=== PATIENT | female | born 1990 | race African-American/Black ===

== ENCOUNTER 2016-12-03 21:00 | Emergency (ER) | payer OTHER ==
[2016-12-03 21:07] VITALS: BP 143/80; PULSE 69; TEMP 97.8; BMI 22.6
[2016-12-03] MEDS ORDERED: morphine CARPU-JECT 4 MG/1 ML DISP.SYRIN IVPUSH ONE (21:30)
[2016-12-03] MEDS ORDERED: ONDANSETRON 4 MG/2 ML VIAL IVPUSH ONE (21:30)
[2016-12-03] MEDS ORDERED: SODIUM CHLORIDE 1,000 ML IV STA (21:30)
[2016-12-03] MEDS ORDERED: morphine CARPU-JECT 4 MG/1 ML DISP.SYRIN ONE (21:36)
[2016-12-03] MEDS ORDERED: ONDANSETRON 4 MG/2 ML VIAL ONE (21:36)
--- NOTE | 2016-12-03 21:52 | PDOC ---
History of Present Illness - General Chief Complaint: Pain, Acute Stated Complaint: ABD PAIN Time Seen by Provider: 12/03/16 21:19 History Source: Patient, Family (Mother) Exam Limitations: No Limitations - History of Present Illness Travel History: No Initial Comments: 12/03/16 21:48 26yo Female patient presents to ED c/o abd pain since 230 pm w/ n/v x 7 per patient. Patient states symptoms gradually got worse beginning Friday. Patient reports alcohol use on Friday. LNMP: Current. Denies any other complaints at this time. Timing/Duration: reports: getting worse Quality: reports: cramping Abdominal Pain Onset Location: reports: generalized abdomen Pain Radiation: denies: no radiation, RUQ, LUQ, RLQ, LLQ, epigastric, periumbilical, flank, groin, scapula, shoulder, chest, back, other Activities at Onset: reports: no specific activity Treatment Prior to Arrive: worse with: analgesics, antacids, cold pack, heat, laxative, enema, other Aggravating Factors: worse with: None, Defecation, Eating, Emotional upset, Exertion, [place], Movement, Voiding, Change in position Alleviating Factors: worse with: None, Belching, Shallow Breathing, Defecation, Eating, Holding Breath, Passing Gas, Change in Position, Rest, Voiding, Vomiting Past History - Travel Traveled outside of the country in the last 30 days: No Close contact w/someone who was outside of country & ill: No - Past Medical History Allergies/Adverse Reactions: Allergies Allergy/AdvReac Type Severity Reaction Status Date / Time No Known Allergies Allergy Verified 12/03/16 21:02 Home Medications: Ambulatory Orders Famotidine [Pepcid] 20 mg PO BID #14 tablet 12/04/16 Ondansetron [Zofran Odt -] 4 mg SL Q6H PRN #20 od.tablet 12/04/16 Asthma: No Cancer: No Cardiac Disorders: No Diabetes: No HTN: No Seizures: No Thyroid Disease: No - Immunization History Immunization Up to Date: Yes - Psycho/Social/Smoking Cessation Hx Suicidal Ideation: No Smoking History: Never smoked Have you smoked in the past 12 months: No Number of Cigarettes Smoked Daily: 2 Information on smoking cessation initiated: No Hx Alcohol Use: No Drug/Substance Use Hx: Yes (Marijuana) Hx Substance Use Treatment: No Abd/GI Specific PMHX - Complaint Specific PMHX Colitis: No Diverticulitis: No Gall Bladder Disease: No GERD: No Hepatitis: No Irritable Bowel Synd (IBS): No Pancreatitis: No GI Ulcer Disease: No Review of Systems - Review of Systems Able to Perform ROS?: Yes Is the patient limited Divehi proficient: No Constitutional: No: Chills, Fever Respiratory: No: Cough, Shortness of Breath, Stridor, Wheezing, Hemoptysis Cardiac (ROS): No: Chest Pain, Palpitations, Chest Tightness ABD/GI: Yes: Nausea, Vomiting, Other (Abdominal Pain). No: Poor Appetite, Poor Fluid Intake, Rectal Bleeding : No: Dysuria, Flank Pain, Hematuria Musculoskeletal: No: Back Pain Integumentary: No: Bruising, Erythema, Flushing, Rash, Sweating Neurological: No: Headache, Dizziness All Other Systems: Reviewed and Negative *Physical Exam - Vital Signs Last Vital Signs Temp Pulse Resp BP Pulse Ox 97.8 F 69 18 143/80 100 12/03/16 21:04 12/03/16 21:04 12/03/16 21:04 12/03/16 21:04 12/03/16 21:04 - Physical Exam General Appearance: Yes: Nourished, Appropriately Dressed, Apparent Distress, Moderate Distress. No: Mild Distress, Severe Distress Neck: positive: Trachea midline, Supple. negative: Lymphadenopathy (R), Lymphadenopathy (L) Respiratory/Chest: positive: Lungs Clear, Normal Breath Sounds. negative: Respiratory Distress, Accessory Muscle Use, Labored Respiration, Rapid RR Cardiovascular: positive: Regular Rhythm, Regular Rate Gastrointestinal/Abdominal: positive: Normal Bowel Sounds, Soft, Tenderness ( GENERALIZED ABD TENDERNESS WITH MILD TOUCH). negative: Distended, Guarding, Rebound Musculoskeletal: positive: Normal Inspection. negative: CVA Tenderness Extremity: positive: Normal Capillary Refill, Normal Inspection, Normal Range of Motion. negative: Pedal Edema, Swelling, Calf Tenderness, Erythema, Inflammation Integumentary: positive: Normal Color, Dry, Warm Neurologic: positive: ux developer II-XII NML intact, Fully Oriented, Alert, Normal Mood/ Affect, Normal Response, Motor Strength 5/5 ED Treatment Course - LABORATORY CBC & Chemistry Diagram: 12/03/16 22:00 12/03/16 22:00 Progress Note - Progress Note Progress Note: Patient states her symptoms have improved. Patient sitting up in bed talking with Mother. Denies any pain. No acute distress. Asking to be d/c'd to home. *DC/Admit/Observation/Transfer Diagnosis at time of Disposition: Gastritis Qualifiers: Gastritis type: alcoholic Chronicity: acute Gastritis bleeding: without bleeding Qualified Code(s): K29.20 - Alcoholic gastritis without bleeding - Discharge Dispostion Disposition: HOME Condition at time of disposition: Improved Admit: No - Prescriptions Prescriptions: Famotidine [Pepcid] 20 mg PO BID #14 tablet Ondansetron [Zofran Odt -] 4 mg SL Q6H PRN #20 od.tablet PRN Reason: Nausea - Patient Instructions Printed Discharge Instructions: DI for Gastritis, DI for Alcoholic Gastritis Additional Instructions: FOLLOW UP WITH YOUR PRIMARY CARE PROVIDER NEEDED. TAKE MEDICATIONS PRESCRIBED. RETURN IF SYMPTOMS WORSEN OR ANY CONCERNS FOR FURTHER EVALUATION. Print Language: JAPANESE
[2016-12-03 22:08] LABS: BASOPHIL 0.5 % (0-2.0); EOSINOPHIL 0.1 % (0-4.5); MCH 25.3 pg (25.7-33.7); MCHC 31.9 g/dl (32.0-36.0); MEAN CELL VOLUME 79.3 fl (80-96); MEAN PLT VOLUME 8.1 fl (7.5-11.1); NEUTROPHILS 82.9 % (42.8-82.8); PLATELET COUNT 218 K/MM3 (134-434); RDW 14.5 % (11.6-15.6); WHITE BLOOD COUNT 11.5 K/mm3 (4.0-10.0)
[2016-12-03 22:55] LABS: ALBUMIN 4.1 g/dl (3.4-5.0); AMYLASE 147 U/L (25-115); ANION GAP 11 (8-16); CALCIUM 9.6 mg/dL (8.5-10.1); CO2 25 mmol/L (21-32); COCKROFT - GAULT 94.1205; CREATININE 0.9 mg/dL (0.55-1.02); GLUCOSE,RANDOM 122 mg/dL (74-106); SGOT/AST 16 U/L (15-37); SGPT/ALT 20 U/L (12-78)
[2016-12-03 22:56] LABS: ALK PHOS 78 U/L (45-117); BILIRUBIN,TOTAL 0.5 mg/dL (0.2-1.0); TOT PROT 7.5 g/dl (6.4-8.2)
[2016-12-03 23:55] LABS: URINE APPEARANCE CLEAR; URINE BILIRUBIN NEGATIVE (NEGATIVE); URINE COLOR LTYELLOW; URINE GLUCOSE (UA) NEGATIVE (NEGATIVE); URINE KETONE 1+ (NEGATIVE); URINE LEUK ESTERASE NEGATIVE (NEGATIVE); URINE NITRITE NEGATIVE (NEGATIVE); URINE PROTEIN NEGATIVE (NEGATIVE); URINE UROBILINOGEN NEGATIVE E.U./dl (0.2-1.0)
[2016-12-04] LABS: URINE BLOOD 3+ (NEGATIVE)
[2016-12-04 00:02] LABS: URINE BACTERIA FEW /hpf (NONE SEEN); URINE MUCUS FEW; URINE RBC 14 /hpf (0-3); URINE WBC 2 /hpf (3-5)
== END 2016-12-04 00:38 | disposition home or self-care (01) ==
LOC: JER 21:00
PROC: 3E033NZ Introduction of Analgesics, Hypnotics, Sedatives into Peripheral Vein, Percutaneous Approach (ICD-10-PCS; principal; 2016-12-03)
PROC: 3E033GC Introduction of Other Therapeutic Substance into Peripheral Vein, Percutaneous Approach (ICD-10-PCS; 2016-12-03)
DX: K29.20 Alcoholic gastritis without bleeding (principal)
CPT/HCPCS: 36415; 80053; 81003; 81015; 82150; 83690; 84703; 85025; 96374; 96375; 99282-25

== ENCOUNTER 2018-07-24 10:55 | Emergency (ER) | payer OTHER ==
[2018-07-24 11:04] VITALS: BMI 23.1
[2018-07-24] MEDS ORDERED: SODIUM CHLORIDE 1,000 ML IV SCH (11:15)
--- NOTE | 2018-07-24 11:21 | PDOC ---
History of Present Illness - General Chief Complaint: Nausea/Vomiting Stated Complaint: VOMIT Time Seen by Provider: 07/24/18 11:11 History Source: Patient Exam Limitations: No Limitations - History of Present Illness Initial Comments: 07/24/18 11:40 28 year old with no past medical history who presents with multiple episodes of NBNB vomiting too many to count that started this am at 0700 after drinking 4 cups of vodka last night at 2100. The patient reports she does not drink alcohol regularly but only occasionally, and this is about the same amount of alcohol that she drinks. She also complains of nonbloody diarrhea that started the same time as the vomiting this AM. She denies abdominal pain, fever, dysuria , hematuria. She denies any chance of . Patient denies any recreational drug use, including marijuana. Past History - Past Medical History Allergies/Adverse Reactions: Allergies Allergy/AdvReac Type Severity Reaction Status Date / Time No Known Allergies Allergy Verified 07/24/18 11:04 Home Medications: Ambulatory Orders Ondansetron [Zofran -] 4 mg PO BID #7 tablet 07/24/18 Ondansetron [Zofran -] 4 mg PO TID #21 tablet 07/24/18 Asthma: No Cancer: No Cardiac Disorders: No Diabetes: No HTN: No Seizures: No Thyroid Disease: No - Immunization History Immunization Up to Date: Yes - Suicide/Smoking/Psychosocial Hx Smoking History: Never smoked Have you smoked in the past 12 months: No Number of Cigarettes Smoked Daily: 2 Hx Alcohol Use: No Drug/Substance Use Hx: Yes (Marijuana) Hx Substance Use Treatment: No Review of Systems - Review of Systems Able to Perform ROS?: Yes Is the patient limited Vietnamese proficient: No Constitutional: No: Chills, Diaphoresis, Fever Respiratory: No: Cough, Orthopnea, Shortness of Breath Cardiac (ROS): No: Chest Pain, Palpitations, Syncope ABD/GI: No: Constipated, Diarrhea, Nausea, Vomiting : No: Burning, Dysuria, Incontinence Neurological: No: Headache, Numbness, Tingling *Physical Exam - Vital Signs Last Vital Signs Temp Pulse Resp BP Pulse Ox 64 20 128/77 98 07/24/18 11:02 07/24/18 11:02 07/24/18 11:02 07/24/18 11:02 - Physical Exam Comments: 07/24/18 11:57 GENERAL: Awake, alert, and fully oriented, in no acute distress HEAD: No signs of trauma, normocephalic, atraumatic EYES: PERRLA, EOMI, sclera anicteric, conjunctiva clear ENT: oropharynx clear without exudates. Moist mucosa NECK: Normal ROM, supple LUNGS: No distress, speaks full sentences, clear to auscultation bilaterally HEART: Regular rate and rhythm, normal S1 and S2, no murmurs, rubs or gallops, peripheral pulses normal and equal bilaterally. ABDOMEN: Soft, nontender, normoactive bowel sounds. No guarding, no rebound. No masses EXTREMITIES : Normal inspection, Normal range of motion, no edema. No clubbing or cyanosis. NEUROLOGICAL: Cranial nerves II through XII grossly intact. Normal speech, no focal sensorimotor deficits SKIN: Warm, Dry, normal turgor, no rashes or lesions noted Moderate Sedation - Procedure Monitoring Vital Signs: Procedure Monitoring Vital Signs Temperature Pulse Rate 64 07/24/18 11:02 Respiratory Rate 20 07/24/18 11:02 Blood Pressure 128/77 07/24/18 11:02 O2 Sat by Pulse Oximetry (%) 98 07/24/18 11:02 Medical Decision Making - Medical Decision Making 07/24/18 11:53 28 year old with no past medical history who presents with multiple episodes of NBNB vomiting too many to count that started this am at 0700 after drinking 4 cups of vodka last night at 2100. The patient reports she does not drink alcohol regularly but only occasionally, and this is about the same amount of alcohol that she drinks. She also complains of nonbloody diarrhea that started the same time as the vomiting this AM. She denies abdominal pain, fever, dysuria , hematuria. She denies any chance of . ED course: Symptoms consistent with veisalgia vs uti vs gastroenteritis vs Will treat symptoms with reglan and fluid resuscitation. Urinalysis, Upreg ordered. 07/24/18 14:29 Patient feels nausea improved. Drank gatorade without complications or emesis. Cracker and water given for PO trial. If able PO trial successful will dc with home zofran. 07/24/18 15:05 Patient reports feeling improved, tolerated PO. Wants to eat. UA, Upreg pending. Patient ready for discharge. Will call patient with results and send any medications as necessary. Patient stable for discharge. Informed of all lab and imaging results. Given follow up instructions and strict return precautions. Patient expressed understanding and agree to plan. *DC/Admit/Observation/Transfer Diagnosis at time of Disposition: Vomiting - Discharge Dispostion Disposition: HOME Condition at time of disposition: Stable Decision to Admit order: No - Prescriptions Prescriptions: Ondansetron [Zofran -] 4 mg PO BID #7 tablet Ondansetron [Zofran -] 4 mg PO TID #21 tablet - Referrals - Patient Instructions Printed Discharge Instructions: DI for Vomiting -- Adult Additional Instructions: You were seen in the ED for complaints of vomiting. In the ED you were evaluated with labwork and showed improvement of symptoms with fluids and anti-nausea medications. You are advised to follow up with your Primary Care Physician within 1 week. You were given a prescription for Zofran for nausea symptoms. Please take medication as indicated. For the next 12 hours please eat light or clear fluids, including soups, gatorade and broths. Advance your diet to bland foods as tolerated then to a regular diet. Return to the ED immediately if you experience worsening nausea and vomiting, vomiting blood, abdominal pain, blood in urine or stool, fevers, chest pain or shortness of breath. - Post Discharge Activity Forms/Work/School Notes: Back to Work
[2018-07-24] MEDS ORDERED: ONDANSETRON 4 MG/2 ML VIAL IVPUSH ONE (11:40)
[2018-07-24] MEDS ORDERED: METOCLOPRAMIDE HCL INJECTION 10 MG/2 ML VIAL IVPUSH ONE (11:54)
[2018-07-24] MEDS ORDERED: METOCLOPRAMIDE HCL INJECTION 10 MG/2 ML VIAL ONE (12:20)
[2018-07-24] MEDS ORDERED: ONDANSETRON 4 MG/2 ML VIAL ONE (12:20)
--- NOTE | 2018-07-24 12:47 | PDOC ---
Attending Attestation - HPI HPI: 07/24/18 13:47 The patient is a 28 year old female, with no significant past medical history, who presents to the emergency department with multiple episodes of emesis since 7am after drinking 4 cups of vodka last night around 9PM. She also reports an episode of diarrhea. The patient denies chest pain, shortness of breath, headache and dizziness. The patient denies fever, chills, and constipation. The patient denies dysuria, frequency, urgency and hematuria. Allergies: NKDA Past surgical history: none reported Social Hx: Denies recreational drug use, reports occasional ETOH - Physicial Exam PE: 07/24/18 13:47 Vitals: Triage vital signs reviewed General Appearance: No acute distress, well nourished, well developed Head: Atraumatic Eyes: Pupils equal reactive round, extraocular movement intact Neck: Supple; No nuchal rigidity Chest Wall: Nontender Cardiac: Regular rate and rhythm, no murmurs, no rubs, no gallops Lungs: Clear to auscultation bilateral, good air movement bilaterally Abdomen: Soft, nondistended, normal bowel sounds, nontender to palpation Extremities: Full range of motion to all extremities, no cyanosis, clubbing, or edema Skin: Warm and dry, no rashes or lesions, no rash, no petechiae Neuro: AOX3; Cranial Nerves 2-12 grossly intact, Strength intact to all extremities, Sensation intact to all extremities, gait normal Psych: Normal mood, normal affect - Medical Decision Making 07/24/18 13:48 Documentation prepared by Elinor Hernandez, acting as medical billing and coding instructor for Eulogio Valerio MD <Elinor Hernandez - Last Filed: 07/24/18 13:47> - Resident Resident Name: Cheyanne Kumar - ED Attending Attestation I have performed the following: I have examined & evaluated the patient, The case was reviewed & discussed with the resident, I agree w/resident's findings & plan, Exceptions are as noted - Medical Decision Making 28 years old no significant past medical history presents to the ED with several day history of nausea vomiting and diarrhea. History examination consistent with viral GI illness. There is no abdominal tenderness palpation on examination. Reevaluation 3. Status post IV fluids and antiemetics patient feels much better now tolerating fluids by mouth. We'll discharge home which short course of Zofran and very strict return instructions. Findings, need follow-up and strict return instructions discussed with patient. <Eulogio Valerio - Last Filed: 07/24/18 15:12>
[2018-07-24] MEDS ORDERED: FAMOTIDINE 20 MG/50 ML IVPB 20 MG/50 ML MG IVPB ONE ×2 (13:29→14:17)
[2018-07-24 15:55] VITALS: BP 121/68; PULSE 62
[2018-07-24 16:10] LABS: URINE APPEARANCE SLCLOUDY; URINE BILIRUBIN NEGATIVE (<2.0 mg/dL); URINE COLOR YELLOW; URINE GLUCOSE (UA) NEGATIVE (NEGATIVE); URINE KETONE 1+ (NEGATIVE); URINE LEUK ESTERASE NEGATIVE (NEGATIVE); URINE NITRITE POSITIVE (NEGATIVE); URINE PROTEIN 2+ (NEGATIVE); URINE UROBILINOGEN NEGATIVE mg/dL (0.2-1.0)
[2018-07-24 16:28] LABS: EPI CELLS RARE /HPF (FEW); URINE BACTERIA FEW /hpf (NONE SEEN)
[2018-07-24 16:30] LABS: HCG,QUALITATIVE URINE Positive
== END 2018-07-24 15:54 | disposition home or self-care (01) ==
LOC: JER 10:55
PROC: 3E033GC Introduction of Other Therapeutic Substance into Peripheral Vein, Percutaneous Approach (ICD-10-PCS; principal; 2018-07-24)
PROC: 3E033GC Introduction of Other Therapeutic Substance into Peripheral Vein, Percutaneous Approach (ICD-10-PCS; 2018-07-24)
PROC: 3E033GC Introduction of Other Therapeutic Substance into Peripheral Vein, Percutaneous Approach (ICD-10-PCS; 2018-07-24)
DX: R11.2 Nausea with vomiting, unspecified (principal)
CPT/HCPCS: 81003; 81015; 84703; 87086; 87186; 99283-25; J7030

== ENCOUNTER 2020-09-08 15:26 | Emergency (ER) | payer OTHER ==
[2020-09-08 16:05] VITALS: BMI 26.2
[2020-09-08 17:56] LABS: BASO % 0.7 % (0-2.0); EOS % 1.7 % (0-4.5); HEMOGLOBIN 11.1 GM/dL (10.7-15.3); LYMPH % 48.9 % (8-40); MCH 25.7 pg (25.7-33.7); MCHC 31.8 g/dl (32.0-36.0); MEAN CELL VOLUME 80.8 fl (80-96); MEAN PLT VOLUME 7.9 fl (7.5-11.1); MONO % 7.9 % (3.8-10.2); NEUT % 40.8 % (42.8-82.8); PLATELET COUNT 209 K/MM3 (134-434); RBC 4.33 M/mm3 (3.60-5.2); RDW 15.3 % (11.6-15.6); WHITE BLOOD COUNT 6.7 K/mm3 (4.0-10.0)
[2020-09-08 18:31] LABS: POTASSIUM 4.6 mmol/L (3.5-5.1)
[2020-09-08 18:33] LABS: CALCIUM 9.7 mg/dL (8.5-10.1)
[2020-09-08 18:34] LABS: BLOOD UREA NITROGEN 13.4 mg/dL (7-18)
[2020-09-08 18:37] LABS: CREATININE 0.8 mg/dL (0.55-1.3)
[2020-09-08 18:38] LABS: BILIRUBIN,TOTAL 0.5 mg/dL (0.2-1)
[2020-09-08 18:39] LABS: TOT PROT 7.3 g/dl (6.4-8.2)
[2020-09-08 19:10] VITALS: BP 128/82; PULSE 74; TEMP 98
== END 2020-09-08 19:31 | disposition home or self-care (01) ==
LOC: JER 15:26
DX: R00.2 Palpitations (principal)
CPT/HCPCS: 36415; 71046-TC-FY; 80053; 84443; 84703; 85025; 93005; 93010; 99284-25

== ENCOUNTER 2021-07-31 07:05 | Emergency (ER) | payer OTHER ==
[2021-07-31 07:57] VITALS: BP 123/77; PULSE 82; TEMP 97.8; BMI 23.8
[2021-08-01 10:07] LABS: SARS-CoV-2 NAA Detected (Not Detected)
== END 2021-07-31 09:22 | disposition home or self-care (01) ==
LOC: JER 07:05
DX: J06.9 Acute upper respiratory infection, unspecified (principal)
CPT/HCPCS: 87804; 87807; 99283-25; C9803; U0003; U0005

== ENCOUNTER 2025-01-13 15:15 | Inpatient (IN) | payer OTHER ==
[2025-01-13] MEDS: ELECTROLYTE-148 SOLN 500 ML IV ONE ×2 (18:31→22:00)
[2025-01-13] MEDS ORDERED: TERBUTALINE SULFATE 1 MG/1 ML VIAL SQ ONE (20:50)
[2025-01-13] MEDS ORDERED: ELECTROLYTE-148 SOLN 500 ML IV ONE (22:00)
[2025-01-13 22:30] LABS: ABSOLUTE IMMATURE GRANULOCYTES 0.03 x10^3/uL (0.0-0.031); BASOPHILS # 0.01 x10^3/uL (0.01-0.08); EOSINOPHIL % 0.5 % (0.7-5.8); EOSINOPHILS # 0.04 x10^3/uL (0.04-0.36); HEMATOCRIT 37.9 % (34.1-44.9); HEMOGLOBIN 11.9 g/dL (11.2-15.7); MCHC 31.4 g/dl (32.2-35.5); MEAN CELL VOLUME 82.6 fl (79.4-94.8); MEAN PLT VOLUME 10.2 fl (9.4-12.3); MONOCYTE # 0.58 x10^3/uL (0.24-0.86); MONOCYTE % 7.6 % (4.7-12.5); PLATELET COUNT 193 x10^3/uL (182-369); RDW 14.8 % (12.1-16.8)
[2025-01-13 22:31] LABS: INR 1.01 (0.83-1.09)
[2025-01-13 22:34] LABS: ACTIVATED PTT 30.1 SECONDS (25.2-36.5)
[2025-01-13] MEDS: CITRIC ACID/SODIUM CITRATE 30 ML UNIT-DOSE CUP PO ONE (22:40)
[2025-01-13] MEDS: TERBUTALINE SULFATE 1 MG/1 ML VIAL SQ ONE (22:50)
[2025-01-13 22:58] LABS: POTASSIUM 3.4 mmol/L (3.5-5.1)
[2025-01-13 22:59] LABS: BLOOD UREA NITROGEN 5.6 mg/dL (7-18); CALCIUM 9.3 mg/dL (8.5-10.1)
[2025-01-13 23:03] LABS: CREATININE 0.6 mg/dL (0.55-1.3)
[2025-01-13] MEDS ORDERED: OXYTOCIN 30 UNITS in 0.9% NS 30 UNIT/500 ML INFUS.BAG IVPB ONE (23:13)
[2025-01-13] MEDS ORDERED: FENTANYL CITRATE/PF 50 MCG/ML VIAL ONE (23:14)
[2025-01-13] MEDS ORDERED: morphine SULFATE/PF 1 MG/2 ML (2cc Syringe - QUVA) ONE (23:14)
[2025-01-13] MEDS ORDERED: ONDANSETRON 4 MG/2 ML VIAL IVPUSH PRN (23:52)
[2025-01-14] MEDS ORDERED: METHYLERGONOVINE MALEATE 0.2 MG/1 ML AMP IM PRN (00:30)
[2025-01-14] MEDS ORDERED: ACETAMINOPHEN 325 MG TABLET (FP) PO PRN (00:30)
[2025-01-14 00:52] LABS: CORD PCO2 58.3 mmHg (30-78); CORD pH 7.267 (7.14-7.44)
[2025-01-14 00:55] LABS: CORD BASE EXCESS -2.3 mmol/L (0-2); CORD HCO3 22.7 mmHg (20-29); CORD PCO2 40.2 mmHg (30-78); CORD pH 7.37 (7.14-7.44)
[2025-01-14 01:55] VITALS: RESP 18
[2025-01-14] MEDS ORDERED: OXYTOCIN 20 UNITS in 0.9% NS 20 UNIT/1,000 ML INFUS.BAG IV ONE (02:12)
[2025-01-14] MEDS: ACETAMINOPHEN 1000 MG/100 ML BAG IVPB ONE (02:15)
[2025-01-14] MEDS ORDERED: ACETAMINOPHEN INJECTION 100 ML ONE (02:17)
[2025-01-14] MEDS: OXYTOCIN 20 UNITS in 0.9% NS 20 UNIT/1,000 ML INFUS.BAG IV SCH (02:20)
[2025-01-14 02:57] VITALS: BMI 30.2
[2025-01-14] MEDS: CEFAZOLIN SODIUM 2 GM in DEXTROSE 5%-WATER 100 ML IVPB SCH (03:15)
[2025-01-14] MEDS ORDERED: CEFAZOLIN SODIUM 2 GM VIAL ONE (03:18)
[2025-01-14] MEDS: ENOXAPARIN NA (PORCINE) 40 MG/0.4 ML DISP.SYRIN SQ SCH (09:24)
[2025-01-14] MEDS: IBUPROFEN 800 MG/8 ML IJ IVPB PRN (09:24)
[2025-01-14] MEDS ORDERED: oxyCODONE HCL 5 MG TABLET PO PRN (12:30)
[2025-01-14] MEDS: KETOROLAC TROMETHAMINE 30 MG/1 ML VIAL IVPUSH ONE (19:34)
[2025-01-14] MEDS: IBUPROFEN 600 MG TABLET (FP) PO PRN (20:04)
[2025-01-14] MEDS: SIMETHICONE 80 MG TAB.CHEW (FP) PO PRN (20:04)
[2025-01-14 20:19] LABS: HIV INTERPRETATION NEGATIVE (NEGATIVE)
[2025-01-14] MEDS: oxyCODONE HCL 5 MG TABLET PO PRN (22:41)
[2025-01-14] MEDS: ELECTROLYTE-148 SOLN 1,000 ML IV SCH (22:55)
[2025-01-15] MEDS ORDERED: BISACODYL 10 MG SUPP.RECT RC PRN (00:30)
[2025-01-15 07:33] LABS: ABSOLUTE IMMATURE GRANULOCYTES 0.04 x10^3/uL (0.0-0.031); BASOPHILS # 0.02 x10^3/uL (0.01-0.08); EOSINOPHIL % 0.4 % (0.7-5.8); EOSINOPHILS # 0.04 x10^3/uL (0.04-0.36); HEMATOCRIT 32.2 % (34.1-44.9); MCHC 31.1 g/dl (32.2-35.5); MEAN PLT VOLUME 10.8 fl (9.4-12.3); MONOCYTE # 0.94 x10^3/uL (0.24-0.86); MONOCYTE % 8.9 % (4.7-12.5); PLATELET COUNT 187 x10^3/uL (182-369); RDW 14.6 % (12.1-16.8)
[2025-01-15 10:54] VITALS: TEMP 98.2
[2025-01-15] MEDS: IBUPROFEN 600 MG TABLET (FP) PO PRN (23:15)
[2025-01-16] MEDS: ACETAMINOPHEN 325 MG TABLET (FP) PO PRN (09:35)
[2025-01-16 09:54] VITALS: BP 133/80; PULSE 67
== END 2025-01-16 13:05 | disposition home or self-care (01) | DRG 540 ==
LOC: JDEL 15:15 → J3WN 21:45 → JLDR 22:34 → J3W 01-14 03:13
PROVIDERS: ADMIT Obstetrics & Gynecology; ATTEND Obstetrics & Gynecology
PROC: 10D00Z1 Extraction of Products of Conception, Low, Open Approach (ICD-10-PCS; principal; 2025-01-13)
DX: O34.211 Maternal care for low transverse scar from previous cesarean delivery (principal); N85.8 Other specified noninflammatory disorders of uterus; O99.214 Obesity complicating childbirth; O36.8130 Decreased fetal movements, third trimester, not applicable or unspecified; Z3A.37 37 weeks gestation of pregnancy; Z37.0 Single live birth
CPT/HCPCS: 36415; 36600; 59409; 76819-TC; 80048; 80053; 81003; 82803; 83690; 83735; 85025; 85610; 85730; 86780; 86850; 86900; 86901; 87086; 87389; 88307-TC; 94010; 99284-25